=== PATIENT | female | born 1985 | race Caucasian/White ===

== ENCOUNTER 2024-11-08 20:44 | Outpatient (CLI) | payer BC, SELFPAY ==
[2024-11-08 21:14] VITALS: BP 135/74; PULSE 92
[2024-11-08 21:16] VITALS: BP 133/74; PULSE 89
[2024-11-08 21:30] VITALS: BP 137/80; PULSE 91
[2024-11-08 21:38] LABS: Basophils Percent Auto 0.2 % (0.2-1.2); Eosinophils Absolute Auto 0.2 K/mm3 (0-0.3); Eosinophils Percent Auto 1.8 % (0-4.4); Hematocrit 31.3 % (37.0-47.0); Hemoglobin 10.5 g/dL (12.0-15.0); Immature Granulocyte Absolute 0.04 K/mm3 (0.00-0.031); Immature Granulocyte Percent A 0.3 % (0-0.5); Lymphocytes Absolute Auto 2.33 K/mm3 (0.9-3.2); Lymphocytes Percent Auto 19.9 % (18.3-44.2); Mean Corpuscular HGB Conc 33.5 g/dl (32-36); Mean Corpuscular Hemoglobin 30.5 pg (26-34); Monocytes Absolute Auto 0.8 K/mm3 (0.1-0.6); Monocytes Percent Auto 6.7 % (2.6-8.5); Neutrophils Absolute Auto 8.3 K/mm3 (1.3-6.7); Neutrophils Percent Auto 71.1 % (45.5-73.1); Platelet Count Result 277 k/mm3 (150-375); Red Blood Count 3.44 M/mm3 (4.2-5.4); White Blood Count 11.7 K/mm3 (4.5-10.0)
[2024-11-08 21:42] LABS: Add Urine Microscopic? YES; Appearance Urine Clear (Clear); Bacteria Urine 1+ /hpf; Bilirubin Urine Negative (Negative); Blood Urine 2+ (Negative); Color Urine Yellow (Yellow); Glucose Urine UA Trace mg/dL (Negative); Ketones Urine 2+ mg/dL (Negative); Leukocyte Esterase Ur Negative LEU/UL (Negative); Nitrate Urine Negative (Negative); Non Pathogenic Casts 0-2; Protein Urine Trace mg/dL (Negative); Specific Grav Ur 1.024 (1.001-1.035); Squamous Epithelial Cell Urine Occasional /hpf (Few); Urobilinogen Urine 0.2 mg/dL (<2.0); WBC Urine 0-5 /hpf (0-3); pH Urine 5.5 (5.0-9.0)
[2024-11-08 21:45] VITALS: BP 138/75; PULSE 90
[2024-11-08 21:46] LABS: Creatinine Urine 151.5 mg/dL
[2024-11-08 21:47] LABS: Alanine Aminotransferase 17 U/L (6-35); Albumin Level 3.1 g/dL (3.5-5.1); Alkaline Phosphatase 101 U/L (38-126); Anion Gap 1 mmol/L (4-12); Aspartate Amino Transferase 48 U/L (14-36); Bilirubin,Total 0.3 mg/dL (0.2-1.3); Blood Urea Nitrogen 9 mg/dL (7-17); Carbon Dioxide 21 mmol/L (22-30); Chloride 110 mmol/L (98-107); Estimated Glomerular Filt Rate > 60; Glucose 119 mg/dL (65-110); Potassium 3.4 mmol/L (3.4-5.0); Sodium 132 mmol/L (137-145); Uric Acid 4.1 mg/dL (2.5-7.5)
[2024-11-08 21:53] LABS: Total Protein Urine Random < 5 mg/dL
[2024-11-08 21:54] LABS: Ur Ttl Prot Creatinine Ratio < 0.03 mg/mg (0-0.20)
[2024-11-08 22:00] VITALS: BP 131/71; PULSE 86
--- NOTE | 2024-11-08 22:00 | PC.NURSE ---
Call placed to Dr. Constantino F[facility], CTX, Vitals and labs reported along with pt c/o. Order to discharge pt home undelivered and to follow up with regular OB due to increase liver enzymes.
== END 2024-11-08 22:10 | disposition home or self-care (01) ==
LOC: ANHOBOP 20:57 → ANHOBPP 21:01
PROVIDERS: PCP Obstetrics & Gynecology; Visit Provider Obstetrics & Gynecology
DX: O13.9 Gestational [pregnancy-induced] hypertension without significant proteinuria, unspecified trimester (principal)
CPT/HCPCS: 36415; 59025; 80053; 81001; 82570; 84156; 84550; 85025; 99199